=== PATIENT | male | born 1985 | race Caucasian/White ===

== ENCOUNTER → 2017-01-27 | Outpatient (REF) | payer OTHER ==
[2017-01-27 11:28] LABS: INFLUENZA VIRUS TYPE B ANTIBOD Negative (NEGATIVE)
[2017-01-27 11:29] LABS: INFLUENZA VIRUS TYPE A ANTIBOD Positive (NEGATIVE)
== END ==
LOC: LAB 11:12
PROVIDERS: ATTEND Family Medicine
DX: R05 Cough (principal)
CPT/HCPCS: 87502

== ENCOUNTER 2017-02-05 19:52 | Inpatient (IN) | payer OTHER ==
[~2017-02-05] VITALS: Ht 185.4 cm; Wt 129.5 kg
[2017-02-05] MEDS ORDERED: ALBUTEROL 0.5% NEB SOLUTION 2.5 MG/0.5 ML VIAL INH ONE (20:10)
[2017-02-05] MEDS ORDERED: SODIUM CHLORIDE 0.9% NEB SOLN 3 ML VIAL ONE (20:13)
[2017-02-05] MEDS ORDERED: predniSONE 20 MG (DELTASONE) TABLET PO ONE (20:30)
[2017-02-05] MEDS ORDERED: LEVOFLOXACIN 750 MG/150 ML IV 150 ML IV ONE (21:00)
--- NOTE | 2017-02-05 21:06 | NUR ---
O2 sat 89%-92% on room air. O2 applied via nc at 2 L.
[2017-02-05 21:10] LABS: MEAN CORPUSCULAR HEMOGLOBIN 28.6 PG (26.0-34.0); MEAN CORPUSCULAR HGB CONC 34.5 g/dL (31.0-37.0); MEAN CORPUSCULAR VOLUME 83 FL (80-100); PLATELET COUNT 426 10^3uL (150-450); WHITE BLOOD COUNT 20.64 10^3uL (4.0-11.0)
[2017-02-05 21:17] LABS: ALBUMIN 3.8 g/dL (3.4-5.0); ANION GAP 21.5 MEQ/L (3-15); CALCULATED IONIZED CALCIUM 3.7 mg/dL (3.8-4.6); TOTAL PROTEIN 7.8 g/dL (6.4-8.5)
[2017-02-05 21:22] LABS: BAND NEUTROPHILS % 2 % (0-6); EOSINOPHILS % 0 % (0-4); LYMPHOCYTES # 1.4 #; MONOCYTES # 1.2 #; MONOCYTES % 6 % (3-11); RBC MORPH NORMAL (NORMAL); SEGMENTED NEUTROPHILS % 85 % (51-67); TOTAL CELLS COUNTED 100
--- NOTE | 2017-02-05 21:43 | NUR ---
O2 increased to 3 L. O2 sat decreased to 89% while resting. Dr. Robison notified.
--- NOTE | 2017-02-05 21:50 | NUR ---
Hospitalist notified of admission. Awaiting return call.
--- NOTE | 2017-02-05 22:30 | NUR ---
Patient arrived to floor, via wheel chair accompanied by ED nurse, admitted to room 310 O2 @ 3L / nc Tele MD set up and hospitalist notified.
[2017-02-05 22:50] VITALS: BP 126/80
[2017-02-05] MEDS ORDERED: ONDANSETRON 2 MG/ML (Z0FRAN) 2 ML VIAL IV PRN (23:00)
[2017-02-05] MEDS ORDERED: ACETAMINOPHEN 325 MG TAB (TYLENOL) PO PRN (23:00)
[2017-02-05] MEDS ORDERED: HYDROmorphone 1 MG/ML (DILAUDID) SYRINGE IV PRN (23:00)
[2017-02-05] MEDS ORDERED: IBUPROFEN 600 MG (MOTRIN) TAB PO PRN (23:00)
[2017-02-05] MEDS ORDERED: LEVOFLOXACIN 750 MG/150 ML IV 150 ML IV SCH (23:00)
[2017-02-06 00:15] VITALS: BP 128/74
[2017-02-06] MEDS: D5 1/2 NS W/KCL 20 MEQ/L 1,000 ML IV SCH ×2 (00:38→08:39)
--- NOTE | 2017-02-06 00:44 | NUR ---
Pt on 2 l/min NC, SPO2 94%, HR 101, RR 18 with clear and diminished BS.
[2017-02-06] MEDS: PANTOPRAZOLE 40 MG (PROTONIX) TAB PO SCH (05:51)
[2017-02-06 05:56] LABS: MEAN CORPUSCULAR HEMOGLOBIN 28.5 PG (26.0-34.0); MEAN CORPUSCULAR HGB CONC 34.4 g/dL (31.0-37.0); MEAN CORPUSCULAR VOLUME 83 FL (80-100); PLATELET COUNT 421 10^3uL (150-450); WHITE BLOOD COUNT 15.38 10^3uL (4.0-11.0)
--- NOTE | 2017-02-06 05:56 | NUR ---
Resting off and on throughout night, coughing just "phlegm" at this time, feels "hot" fan on, Tylenol prn 055 for comfort, headache, O2 @ 3 L/nc.
[2017-02-06 06:23] LABS: ANION GAP 17.3 MEQ/L (3-15)
[2017-02-06 06:30] LABS: BAND NEUTROPHILS % 1 % (0-6); EOSINOPHILS % 0 % (0-4); LYMPHOCYTES # 1.1 #; MONOCYTES # 0.5 #; MONOCYTES % 3 % (3-11); RBC MORPH NORMAL (NORMAL); SEGMENTED NEUTROPHILS % 89 % (51-67); TOTAL CELLS COUNTED 100
--- NOTE | 2017-02-06 07:25 | NUR ---
Large discrepancy noted with weight. Please note that weight obtained at admit was obtained by ED nurse upon admission to the floor.
[2017-02-06] MEDS ORDERED: LEVOFLOXACIN 750 MG/150 ML IV 150 ML IV SCH ×2 (07:41→21:00)
[2017-02-06] MEDS ORDERED: NS FLUSH 3 ML PRN IV (07:45)
[2017-02-06] MEDS ORDERED: NS FLUSH 10 ML PRN IV (07:45)
[2017-02-06 08:08] VITALS: BP 134/68
[2017-02-06] MEDS: NS FLUSH 3 ML DAILY IV SCH (08:25)
[2017-02-06] MEDS: ALBUTEROL 0.083% NEB SOLUTION 2.5 MG/3 ML VIAL INH PRN ×2 (09:40→15:37)
--- NOTE | 2017-02-06 09:48 | NUR ---
Pt. just returned from bathroom on room air, 90-91%. O2 replaced at 2L nc. BS are diminished, ess. clear, loose NPC at this time. Nebulizer tx. given to see if it helps with cough and O2 sat's. William tx well.
[2017-02-06] MEDS ORDERED: CALCIUM CARBONATE CHEWABLE 300 MG (TUMS) TABLET PO PRN (09:55)
[2017-02-06] MEDS ORDERED: MAGNESIUM HYDROXIDE 80MG/ML (MILK OF MAGNESIA) 30 ML UDC PO PRN (09:55)
[2017-02-06] MEDS ORDERED: PROMETHAZINE HCL INJ 12.5 MG in SODIUM CHLORIDE 25 ML IV PRN (09:55)
[2017-02-06] MEDS ORDERED: POLYETHYLENE GLYCOL 17 GM (MIRALAX) PACKET PO PRN (09:55)
[2017-02-06] MEDS ORDERED: DOCUSATE SODIUM 100 MG (COLACE) CAP PO PRN (09:55)
[2017-02-06] MEDS ORDERED: MAG HYDROX/AL HYDROX/SIMETH 200-200-20/5 ML (MAG-AL PLUS) 30 ML UDC PO PRN (09:55)
[2017-02-06] MEDS ORDERED: HALL'S COUGH DROPS MM PRN (10:45)
[2017-02-06] MEDS: guaiFENesin ER 600 MG (MUCINEX) TAB PO SCH ×2 (10:58→20:19)
[2017-02-06] MEDS: DEXTROMETHORPHAN 15 MG/10 ML UDC PO PRN ×2 (10:58→22:49)
[2017-02-06] MEDS: ONDANSETRON 4 MG (ZOFRAN) ORAL DISSOLVE TAB PO PRN ×2 (12:50→17:53)
--- NOTE | 2017-02-06 13:49 | NUR ---
MED REC COMPLETE--current med list obtained from patient interview and retail pharmacy ([facility]).
--- NOTE | 2017-02-06 15:11 | NUR ---
Patient oxygen saturation 98% on 2L of 02. Titrated to roomair. Will recheck in 30 minutes.
[2017-02-06 15:13] VITALS: BP 115/69
--- NOTE | 2017-02-06 15:45 | NUR ---
Patient 92% on roomair. Denies SOA or distress. Respirations even and non-labored. Call light in reach.
--- NOTE | 2017-02-06 17:04 | NUR ---
Weaned to room air, 93%. Harsh cough, sm. amt. clear sputum.
--- NOTE | 2017-02-06 18:14 | NUR ---
Patient sitting up in recliner attempting to consume supper. Reports waking from nap with severe dizziness and nausea. PRN Zofran provided. Current vital signs WNL. 02 saturation 92% on roomair. States "this is how I felt when I came in". Appetite remains poor. Staff offers small frequent snacks- patient refuses. Agrees to inform nurse if he would like something to eat. Will continue to monitor.
--- NOTE | 2017-02-06 18:41 | NUR ---
Dr. Putnam notified that patient remains dizzy. No new order received. Will continue to monitor.
--- NOTE | 2017-02-06 20:00 | NUR ---
Pt found on RA, SPO2 95%, HR 77, RR 16 and non labored. BS clear and there are no PRN respiratory interventions indicated at this time.
--- NOTE | 2017-02-06 22:50 | NUR ---
Patient reports that he has had coughing that induced vomiting in the toilet. States "I think I feel better now but I'm still a little dizzy." Robitussin and Phenergan given at this time. Will continue to monitor.
[2017-02-07 00:34] VITALS: BP 114/66
[2017-02-07] MEDS: DEXTROMETHORPHAN 15 MG/10 ML UDC PO PRN (05:12)
[2017-02-07 06:04] LABS: BASOPHILS % (AUTO) 0 % (0-2); EOSINOPHILS # (AUTO) 0.3 10^3uL; EOSINOPHILS % (AUTO) 2 % (0-4); LYMPHOCYTES # (AUTO) 1.4 X10^3; MEAN CORPUSCULAR HEMOGLOBIN 28.9 PG (26.0-34.0); MEAN CORPUSCULAR HGB CONC 34.8 g/dL (31.0-37.0); MEAN CORPUSCULAR VOLUME 83 FL (80-100); MEAN PLATELET VOLUME 9.1 FL (6.0-9.5); MONOCYTES # (AUTO) 0.8 X10^3; MONOCYTES % (AUTO) 6 % (3-11); NEUTROPHILS # (AUTO) 9.8 X10^3; NEUTROPHILS % (AUTO) 79 % (51-67); PLATELET COUNT 482 10^3uL (150-450); WHITE BLOOD COUNT 12.46 10^3uL (4.0-11.0)
[2017-02-07 06:24] LABS: ALBUMIN 3.5 g/dL (3.4-5.0); ANION GAP 17.3 MEQ/L (3-15); PHOSPHORUS 4.6 mg/dL (2.4-4.9)
[2017-02-07] MEDS: PANTOPRAZOLE 40 MG (PROTONIX) TAB PO SCH (06:26)
--- NOTE | 2017-02-07 06:41 | NUR ---
Patient resting in bed throughout night, states that his dizziness is a little better this morning but that he is still having some. No needs at this time.
[2017-02-07 07:29] VITALS: BP 114/69
[2017-02-07] MEDS: ONDANSETRON 4 MG (ZOFRAN) ORAL DISSOLVE TAB PO PRN (08:01)
[2017-02-07] MEDS: guaiFENesin ER 600 MG (MUCINEX) TAB PO SCH (08:28)
[2017-02-07] MEDS: NS FLUSH 3 ML DAILY IV SCH (09:00)
[2017-02-07] MEDS: MECLIZINE 25 MG (ANTIVERT) TABLET PO PRN (11:26)
[2017-02-07] MEDS: DEXTROMETHORPHAN 15 MG/10 ML UDC PO SCH ×4 (11:26→20:14)
--- NOTE | 2017-02-07 11:26 | NUR ---
PRN meclizine provided for continued complaints of dizziness.
[2017-02-07] MEDS: diphenhydrAMINE 25 MG (BENADRYL) TABLET PO PRN ×2 (12:49→20:59)
[2017-02-07 15:24] VITALS: BP 104/66
--- NOTE | 2017-02-07 18:02 | NUR ---
Patient sitting up in recliner. Denies pain, SOA, or other distress. Reports dizziness has subsided "for the most part". Remains on roomair throughout day shift. PRN Benadryl provided on one occasion for itching. Does ambulate 1 lap in arreola this afternoon and agrees to shower before bedtime. Call light in reach.
[2017-02-07 19:33] VITALS: BP 121/85
[2017-02-07] MEDS: CIPROFLOXACIN (CIPRO) 500 MG TABLET PO SCH (20:14)
--- NOTE | 2017-02-07 21:00 | NUR ---
Patient reports that he is still having some itchiness on his feet, benadryl given. Also reports that his dizziness is much improved from before. Will continue to monitor.
[2017-02-07 23:44] VITALS: BP 151/91
[2017-02-08] MEDS: DEXTROMETHORPHAN 15 MG/10 ML UDC PO SCH ×3 (00:05→09:00)
--- NOTE | 2017-02-08 06:20 | NUR ---
Patient has frequent cough throughout night. Dextromethorphan given as scheduled. Patient without other needs.
[2017-02-08] MEDS: PANTOPRAZOLE 40 MG (PROTONIX) TAB PO SCH (06:32)
[2017-02-08 08:47] VITALS: BP 119/77
[2017-02-08] MEDS: NS FLUSH 3 ML DAILY IV SCH (09:00)
--- NOTE | 2017-02-08 09:00 | NUR ---
Patient continues with cough but he was able to eat breakfast without difficulty.
[2017-02-08] MEDS: CIPROFLOXACIN (CIPRO) 500 MG TABLET PO SCH (09:28)
--- NOTE | 2017-02-08 09:30 | NUR ---
Gave the patient discharge instructions and work note. Instructed patient to finish all antibiotics until gone and to keep all follow up appt's for PCP and x-rays. Patient demonstrated verbal understanding of the instructions. DC'd saline lock in the right forearm- catheter intact.
[2017-02-08] MEDS: MECLIZINE 25 MG (ANTIVERT) TABLET PO PRN (09:31)
[2017-02-08] MEDS: ONDANSETRON 4 MG (ZOFRAN) ORAL DISSOLVE TAB PO PRN (09:31)
--- NOTE | 2017-02-08 10:00 | NUR ---
Patient dismissed ambulatory accompanied by the racetrack steward.
== END 2017-02-08 10:00 | disposition home or self-care (01) | DRG 871 ==
LOC: ED 19:53 → MED/SURG 22:02
PROVIDERS: ADMIT Emergency Medicine; ATTEND Emergency Medicine
DX: A41.9 Sepsis, unspecified organism (principal); J18.9 Pneumonia, unspecified organism; R09.02 Hypoxemia; E87.6 Hypokalemia; R42 Dizziness and giddiness; R11.0 Nausea; L29.8 Other pruritus; Z86.19 Personal history of other infectious and parasitic diseases; Z87.891 Personal history of nicotine dependence
CPT/HCPCS: 36415; 71020; 80048; 80053; 80069; 83605; 85025; 86140; 87040; 87070; 87147; 87205; 94640; 96365; 99283

== ENCOUNTER → 2017-02-26 | Outpatient (CLI) | payer OTHER ==
[~2017-02-26] MED LIST: AC325T PO; CODE118S2 PO; CPR500T PO; DPH25C PO; FEXO180T84 PO; FEXO1TAB40 PO; IBP200T PO; MENT10LO MM; ONDA4TAB11 PO; ZINC50TA54 PO
--- NOTE | 2017-02-26 15:27 | Diagnostic Imaging Report ---
INDICATION: Dyspnea, pneumonia. DISCUSSION: Two views of the chest were obtained, comparison 02/05/2017. There is improved aeration of the right mid lung with decreasing atelectasis. Patchy consolidation within the lingula is also slightly decreased as compared to prior exam, likely resolving pneumonia. Normal heart size. No pleural fluid or pneumothorax. No osseous abnormality. IMPRESSION: 1. Improved aeration of the bilateral lungs as described with likely resolving atelectasis on the right and resolving pneumonia on the left. Dictated by: Dictated on workstation # [id number]
== END ==
LOC: RAD 14:33
PROVIDERS: ATTEND Family Medicine
DX: J12.89 Other viral pneumonia (principal)
CPT/HCPCS: 71020